=== PATIENT | female | born 1970 | race Caucasian/White ===

== ENCOUNTER → 2016-11-17 | Outpatient (CLI) | payer BC | LOC: RAD 09:13 | PROVIDERS: ATTEND Internal Medicine Gastroenterology | DX: R19.4 Change in bowel habit (principal); R10.9 Unspecified abdominal pain; R14.0 Abdominal distension (gaseous) | CPT/HCPCS: 74250 ==

== ENCOUNTER → 2017-02-23 | Outpatient (CLI) | payer BC ==
--- NOTE | 2017-02-23 14:20 | WOMENS IMAGING REPORT ---
EXAM DESCRIPTION: 3D SCREENING MAMMO BILAT COMPLETED DATE/TIME: 02/23/2017 1:58 pm REASON FOR STUDY: Z12.31, ROUTINE SCREENING MAMMO (3D) Z12.31 ENCNTR SCREEN MAMMOGRAM FOR MALIGNANT NEOPLASM OF SCARLET COMPARISON: 02/18/2016 and 01/14/2015. TECHNIQUE: Standard craniocaudal and mediolateral oblique views of each breast recorded using digita l acquisition and breast tomosynthesis. LIMITATIONS: None. FINDINGS: No masses, calcifications or architectural distortion. No areas of suspicion. Read with the assistance of CAD. .[facility] - R2 Cenova Version 1.3 .[facility] - R2 Cenova Version 1.3 .[facility] - R2 Cenova Version 2.4 .[facility] [place] R2 Cenova Version 2.4 .[facility] - R2 Cager Operator Version 9.2 IMPRESSION: NORMAL MAMMOGRAM. BIRADS 1. BREAST DENSITY: b. There are scattered areas of fibroglandular density. BIRAD: 1 NEGATIVE RECOMMENDATION: ROUTINE SCREENING COMMENT: The patient has been notified of the results by letter per MQSA requirements. Additional no tification policies are in place for contacting patient with suspicious or incomplete findings. Quality ID #[id number]: The [employer] recommends an annual screening mammogram for women aged 40 years or over. This facility utilizes a reminder system to ensure that all patients receive reminder letters, and/or direct phone calls for appointments. This includes reminders for routine scr eening mammograms, diagnostic mammograms, or other Breast Imaging Interventions when appropriate. Th is patient will be placed in the appropriate reminder system. The [employer] (ACR) has developed recommendations for screening MRI of the breast s in certain patient populations, to be used in conjunction with mammography. Breast MRI surveillanc e may be appropriate for women with more than 20% lifetime risk of developing breast cancer as deter mined by genetic testing, significant family history of the disease, or history of mantle radiation f or Hodgkins Disease. ACR Practice Guidelines 2008. DBT Technology DBT is a type of tomographic mammography. With conventional mammography, overlapping breast tissue ma y make lesions difficult to detect, even with good compression. DBT uses an x-ray tube that rotates a round the breast, taking images at different angles. These images are then combined to create thin sl ices of the breast that the radiologist can view as a 3D reconstruction. The [employer] unit can perform full-field digital mammograms (2D imaging); or DBT (3D imaging); or both, in a combination mode that quickly performs both the mammogram and the tomosynthesis scan while the breast is still compressed. PQRS 6045F: Fluoroscopic imaging is not utilized for breast tomosynthesis. TECHNICAL DOCUMENTATION: FINDING NUMBER: (1) ASSESSMENT: (1) JOB ID: [id number] [employer]- All Rights Reserved
== END ==
LOC: WI 13:12
PROVIDERS: ATTEND Internal Medicine
DX: Z12.31 Encounter for screening mammogram for malignant neoplasm of breast (principal)
CPT/HCPCS: 77063; G0202; 77067

== ENCOUNTER → 2017-06-01 | Outpatient (CLI) | payer BC ==
--- NOTE | 2017-06-01 14:06 | RADIOLOGY REPORT (SQ) ---
EXAM DESCRIPTION: CT CHEST WITH COMPLETED DATE/TIME: 06/01/2017 1:40 pm REASON FOR STUDY: CHEST PAIN R07.9 CHEST PAIN, UNSPECIFIED R10.2 PELVIC AND PERINEAL PAIN R10.9 U NSPECIFIED ABDOMINAL PAIN COMPARISON: None. TECHNIQUE: CT scan of the chest performed using helical scanning technique with dynamic intravenous contrast injection. Images reviewed with lung, soft tissue and bone windows. Reconstructed coronal and sagittal MPR images reviewed. All images stored on PACS. All CT scanners at this facility use dose modulation, iterative reconstruction, and/or weight based d osing when appropriate to reduce radiation dose to as low as reasonably achievable (ALARA). [facility]: Dose Right [facility]: CareDose [facility]: Dose Right [facility]: Teradose 4D [facility]: Plum Baby CONTRAST TYPE AND DOSE: 100 mL Isovue 370- low osmolar. RENAL FUNCTION: BUN 16 creatinine 1.01. RADIATION DOSE: . LIMITATIONS: None. FINDINGS: LUNGS AND PLEURA: No opacities, nodules, masses. No pneumothorax. No effusions. HILAR AND MEDIASTINAL STRUCTURES: No identified masses or abnormal nodes. HEART AND VASCULAR STRUCTURES: No aneurysm or dissection. No central pulmonary emboli. No pericardi al effusion. HARDWARE: None in the chest. UPPER ABDOMEN: No significant findings. Limited exam. THYROID AND OTHER SOFT TISSUES: No masses. No adenopathy. BONES: No significant finding. OTHER: No other significant finding. IMPRESSION: NORMAL CT OF THE CHEST WITH IV CONTRAST. TECHNICAL DOCUMENTATION: JOB ID: [id number] Quality ID # [id number]: Final reports with documentation of one or more dose reduction techniques (e.g., Au tomated exposure control, adjustment of the mA and/or kV according to patient size, use of iterative reconstruction technique) 2010 [employer]- All Rights Reserved
--- NOTE | 2017-06-01 14:09 | RADIOLOGY REPORT (SQ) ---
EXAM DESCRIPTION: CT ABD/PELVIS WITH IV ORAL COMPLETED DATE/TIME: 06/01/2017 1:40 pm REASON FOR STUDY: PELVIC AND PERINEAL PAIN/ABDOMINAL PAIN R07.9 CHEST PAIN, UNSPECIFIED R10.2 PELV IC AND PERINEAL PAIN R10.9 UNSPECIFIED ABDOMINAL PAIN COMPARISON: 11/19/2015. TECHNIQUE: CT scan of the abdomen and pelvis performed with intravenous and oral contrast using mony collin scanning technique with dynamic intravenous contrast injection. Images reviewed with lung, soft t issue, and bone windows. Reconstructed coronal and sagittal MPR images reviewed. Delayed images for e valuation of the urinary system also acquired. All images stored on PACS. All CT scanners at this facility use dose modulation, iterative reconstruction, and/or weight based d osing when appropriate to reduce radiation dose to as low as reasonably achievable (ALARA). [facility]: Dose Right [facility]: CareDose [facility]: Dose Right [facility]: Teradose 4D [facility]: MobileReactor CONTRAST TYPE AND DOSE: contrast/concentration: Isovue 370.00 mg/ml; Total Contrast Delivered: 100.0 ml; Total Saline Delivered: 64.0 ml RENAL FUNCTION: BUN 16 creatinine 1.01. RADIATION DOSE: Up-to-date CT equipment and radiation dose reduction techniques were employed. CTDIv ol: 21.7 - 29.4 mGy. DLP: 4090 mGy-cm.. LIMITATIONS: None. FINDINGS: LOWER CHEST: No significant findings. No nodules or infiltrates. LIVER: Normal size. No masses. No dilated ducts. SPLEEN: Normal size. No focal lesions. PANCREAS: No masses. No significant calcifications. No adjacent inflammation or peripancreatic fluid collections. Pancreatic duct not dilated. GALLBLADDER: Surgically absent. ADRENAL GLANDS: No significant masses or asymmetry. RIGHT KIDNEY AND URETER: No solid masses. No significant calcification. No hydronephrosis or hydroure ter. LEFT KIDNEY AND URETER: No solid masses. No significant calcification. No hydronephrosis or hydrouret er. AORTA AND VESSELS: No aneurysm. No dissection. Renal arteries, SMA, celiac without stenosis. RETROPERITONEUM: No retroperitoneal adenopathy, hemorrhage or masses. BOWEL AND PERITONEAL CAVITY: No obstruction. No visualized masses. No free fluid. No inflammatory ch anges or thickening of bowel wall. APPENDIX: Surgically absent. PELVIS: No significant masses. Normal bladder. No free fluid. ABDOMINAL WALL: No masses. No hernias. BONES: No significant or acute findings. OTHER: No other significant finding. IMPRESSION: NO SIGNIFICANT OR ACUTE FINDINGS IN THE ABDOMEN OR PELVIS. TECHNICAL DOCUMENTATION: JOB ID: [id number] Quality ID # [id number]: Final reports with documentation of one or more dose reduction techniques (e.g., Au tomated exposure control, adjustment of the mA and/or kV according to patient size, use of iterative reconstruction technique) 2010 [employer]- All Rights Reserved
== END ==
LOC: RAD 12:55
PROVIDERS: ATTEND Internal Medicine
DX: R07.9 Chest pain, unspecified (principal); R10.2 Pelvic and perineal pain; R10.9 Unspecified abdominal pain
CPT/HCPCS: 71260; 74177

== ENCOUNTER → 2017-09-08 | Outpatient (CLI) | payer BC ==
[~2017-09-08] MED LIST: AMINOPHYLLINE INJ/PF 250 MG/10 ML SDV IV ONE; REGADENOSON INJ 0.4 MG/5 ML DISP.SYRIN IV ONE
--- NOTE | 2017-09-08 12:24 | DRAGON STRESS TEST REPORT ---
INTRAVENOUS LEXISCAN CARDIOLITE STRESS TEST USING SINGLE PHOTON EMMISION COMPUTERIZED TOMOGRAPHIC. DATE OF PROCEDURE: September 08, 2017 INDICATION : Chest pain CARDIAC RISK FACTORS: Hypertension RESTING EKG: Sinus rhythm without any significant baseline ST-T wave changes STRESS EKG: No significant changes noted with LexiScan bolus REASON FOR TERMINATION: Protocol. PROCEDURE REPORT: Baseline heart rate 67 beats per minute with blood pressure of 90/60. Patient had no significant complaints. Heart rate at 2 minutes post bolus 86 with a blood pressure of 82/48. 3 minutes post bolus heart rate 81 with blood pressure of 98/60. No significant EKG changes were noted. Patient had no significant complaints during the procedure or postprocedure. Patient injected with Aminophyllin 75 mg at 3 minutes or later after Lexiscan bolus. CONCLUSIONS: Normal EKG and hemodynamic response to IV LexiScan. NUCLEAR DATA: At rest the patient was given 16.26 millicuries of technetium 99 sestamibi injected intravenously. As per protocol rest gated SPECT images were obtained. Subsequently the patient was given intravenous LexiScan at a dose of 0.4 mg in 5 mL intravenously, followed by flush with normal saline. Subsequently the stress dose of 45.3 millicuries of technetium 99 sestamibi was injected intravenously. As per protocol stress gated images were obtained. NUCLEAR INTERPRETATION: Both raw and processed data were used for interpretation. Visual, qualitative, computer-generated quantitative data was used. There was good myocardial uptake of technetium compound. Motion artifact and soft tissue attenuations were noted. Breast attenuation was significantly marked. Increased visceral uptake was noted. This caused significant difficulty with interpretation. Mild decreased uptake noted in the mid and basal anterior wall, in addition mild decreased uptake also noted in the mid and basal inferior wall. These are somewhat slightly more marked in the stress imaging as compared to the rest imaging. However there were no corresponding wall motion abnormalities noted. Cannot rule out mild ischemia involving the mid anterior wall and mid inferior wall. May consider alternative evaluation with either cardiac CTA or dobutamine stress echo etc. EKG gated imaging showed LV EF at 49 %, rest and stress gated EF similar visually. T. I D. ratio was 1.36. Lung heart ratio noted to be within normal limits 0.24. No significant extracardiac and abnormal radiotracer activities were noted. RV free wall uptake was noted to be mildly increased. IMPRESSION: Also refer to comments under nuclear interpretation. Also test results needs to be interpreted in the context of pretest probability. 1. Mild decreased uptake noted in the mid and basal anterior wall, in addition mild decreased uptake also noted in the mid and basal inferior wall. These are somewhat slightly more marked in the stress imaging as compared to the rest imaging. However there were no corresponding wall motion abnormalities noted. Cannot rule out mild ischemia/mild scar involving the mid anterior wall and mid inferior wall. May consider alternative evaluation with either cardiac CTA or dobutamine stress echo etc. cardiac MRI stress or PET stress. 2. Mild transient ischemic dilatation noted. Overall confidence in the test is low. RV free wall uptake noted to be mildly increased. 3. EKG gated imaging shows left ventricular ejection fraction of approximately 49 %. Visually no definite regional wall motion abnormalities were noted. 4. Clinical correlation requested as occasionally single vessel disease or balanced ischemia could be missed. In approximately 10% of the cases Lexiscan may not cause adequate vasodilatory stress. RECOMMENDATIONS: Aggressive risk factor modification, medical therapy. Clinical correlation with echocardiogram derived ejection fraction. Berkley Torres M.D., SANDHYA News Copy Editor art coordinator, Board certified in cardiovascular diseases, Nuclear cardiology, Echocardiography Cardiac CT and cardiac MRI Ph. [phone] [facility]
== END ==
LOC: RAD 08:53
PROVIDERS: ATTEND Internal Medicine Cardiovascular Disease
DX: R07.9 Chest pain, unspecified (principal)
CPT/HCPCS: 93017; 78452; A9500; J2785; J0280; Q9969

== ENCOUNTER 2017-10-14 08:16 | Observation (INO) | payer BC ==
[2017-10-06 13:06] LABS: HEMATOCRIT 36.9 % (36.0-47.0); HEMOGLOBIN 12.4 g/dL (12.0-15.5); MEAN CORPUSCULAR HEMOGLOBIN 33.2 pg (27.0-33.4); MEAN CORPUSCULAR HGB CONC 33.6 g/dL (32.0-36.0); MEAN CORPUSCULAR VOLUME 99 fl (80-97); PLATELET COUNT 362 10^3/uL (150-450); RED BLOOD COUNT 3.74 10^6/uL (3.72-5.28); RED CELL DISTRIBUTION WIDTH 14.4 % (11.5-14.0); WHITE BLOOD COUNT 8.8 10^3/uL (4.0-10.5)
[2017-10-06 13:11] LABS: APPEARANCE,URINE SLIGHTLY-CLOUDY; BILIRUBIN,URINE NEGATIVE (NEGATIVE); COLOR,URINE AMBER; GLUCOSE, URINE NEGATIVE (NEGATIVE); KETONES,URINE NEGATIVE (NEGATIVE); LEUKOCYTE ESTERASE,URINE NEGATIVE (NEGATIVE); NITRITE,URINE NEGATIVE (NEGATIVE); PROTEIN,URINE NEGATIVE (NEGATIVE); URINE SPECIFIC GRAVITY 1.024; UROBILINOGEN,URINE NEGATIVE mg/dL (<2.0)
[2017-10-06 13:27] LABS: ALANINE AMINOTRANSFERASE 44 U/L (9-52); ALBUMIN 4.6 g/dL (3.5-5.0); ALKALINE PHOSPHATASE 100 U/L (38-126); ANION GAP 11 (5-19); ASPARTATE AMINO TRANSFERASE 41 U/L (14-36); BILIRUBIN,DIRECT 0.3 mg/dL (0.0-0.4); BILIRUBIN,TOTAL 0.4 mg/dL (0.2-1.3); BLOOD UREA NITROGEN 18 mg/dL (7-20); CALCIUM 10.3 mg/dL (8.4-10.2); CARBON DIOXIDE 28 mmol/L (22-30); CHLORIDE 103 mmol/L (98-107); GLUCOSE 82 mg/dL (75-110); POTASSIUM 3.9 mmol/L (3.6-5.0); SODIUM 142.2 mmol/L (137-145); TOTAL PROTEIN 7.2 g/dL (6.3-8.2)
--- NOTE | 2017-10-06 15:49 | RADIOLOGY REPORT (SQ) ---
EXAM DESCRIPTION: CHEST PA/LATERAL COMPLETED DATE/TIME: 10/06/2017 12:56 pm REASON FOR STUDY: PRE OP COMPARISON: CT of chest with contrast 06/01/2017. EXAM PARAMETERS: NUMBER OF VIEWS: two views TECHNIQUE: Digital Frontal and Lateral radiographic views of the chest acquired. RADIATION DOSE: NA LIMITATIONS: none FINDINGS: LUNGS AND PLEURA: No infiltrate, masses or pneumothorax. No pleural effusion. MEDIASTINUM AND HILAR STRUCTURES: No masses or contour abnormalities. HEART AND VASCULAR STRUCTURES: Heart normal size. No evidence for failure. BONES: No acute findings. HARDWARE: None in the chest. OTHER: No other significant finding. IMPRESSION: NO SIGNIFICANT RADIOGRAPHIC FINDING IN THE CHEST. TECHNICAL DOCUMENTATION: JOB ID: [id number] SC-69 2010 [employer]- All Rights Reserved
--- NOTE | 2017-10-07 11:59 | EKG REPORT ---
SEVERITY:- ABNORMAL ECG - SINUS RHYTHM NONSPECIFIC INTRAVENTRICULAR CONDUCTION DELAY : Confirmed by: Berkley Torres 07-Oct-2017 11:57:49
[~2017-10-14 08:16] MED LIST changes: -AMINOPHYLLINE INJ/PF 250 MG/10 ML SDV IV ONE; +LACTATED RINGERS 1000 ML IV PRN; +LIDOCAINE 0.5% INJ-PF (5 MG/ML) 50 ML SDV SUBCUT PRN; -REGADENOSON INJ 0.4 MG/5 ML DISP.SYRIN IV ONE
[2017-10-14] MEDS ORDERED: LIDOCAINE 1%/EPINEPHRINE INJ 20 ML VIAL ONE (08:50)
[2017-10-14] MEDS ORDERED: FENTANYL CITRATE INJ/PF 100 MCG/2 ML AMPUL ONE ×3 (09:31→13:00)
[2017-10-14] MEDS ORDERED: MIDAZOLAM 2 MG/2 ML INJ ONE (09:32)
[2017-10-14] MEDS ORDERED: PROPOFOL INJ 200 MG/20 ML VIAL IV ONE (09:32)
[2017-10-14] MEDS ORDERED: ONDANSETRON HCL INJ/PF 4 MG/2 ML SDV ONE (09:32)
[2017-10-14] MEDS ORDERED: DEXAMETHASONE SOD PHOSPHATE INJ 4 MG/1 ML VIAL ONE (09:32)
[2017-10-14] MEDS ORDERED: ACETAMINOPHEN 100 ML IV ONE ×3 (09:33→18:26)
[2017-10-14] MEDS ORDERED: HYDROMORPHONE HCL INJ/PF 2 MG/ML AMPULE ONE ×2 (09:33→14:42)
[2017-10-14] MEDS ORDERED: SUCCINYLCHOLINE CHLORIDE INJ 200 MG/10 ML VIAL ONE (09:42)
[2017-10-14] MEDS ORDERED: ROCURONIUM BROMIDE INJ 50 MG/5 ML VIAL IV ONE (09:42)
[2017-10-14] MEDS: CEFAZOLIN 1 GM/D5W RTU 1 GM/50 ML RTUPB IV PRN ×2 (09:46→15:40)
[2017-10-14] MEDS ORDERED: FENTANYL CITRATE INJ/PF 100 MCG/2 ML AMPUL IV PRN ×3 (10:46)
[2017-10-14] MEDS ORDERED: PROMETHAZINE HCL INJ 25 MG/1 ML VIAL IV PRN ×2 (10:46)
[2017-10-14] MEDS ORDERED: DIPHENHYDRAMINE HCL 50 MG/ML VIAL IV PRN (10:46)
[2017-10-14] MEDS: IBUPROFEN 800 MG TABLET PO PRN (15:45)
[2017-10-14] MEDS: HYDROMORPHONE HCL INJ/PF 2 MG/ML AMPULE IV PRN (21:20)
[2017-10-15] MEDS: HYDROMORPHONE HCL INJ/PF 2 MG/ML AMPULE IV PRN ×6 (01:49→23:03)
[2017-10-15 06:07] LABS: HEMATOCRIT 32.4 % (36.0-47.0); HEMOGLOBIN 10.9 g/dL (12.0-15.5); MEAN CORPUSCULAR HEMOGLOBIN 33.6 pg (27.0-33.4); MEAN CORPUSCULAR HGB CONC 33.7 g/dL (32.0-36.0); MEAN CORPUSCULAR VOLUME 100 fl (80-97); PLATELET COUNT 344 10^3/uL (150-450); RED BLOOD COUNT 3.25 10^6/uL (3.72-5.28); RED CELL DISTRIBUTION WIDTH 14.3 % (11.5-14.0); WHITE BLOOD COUNT 15.3 10^3/uL (4.0-10.5)
--- NOTE | 2017-10-15 09:46 | PDOC PROGRESS REPORT ---
Subjective Progress Note for:: 10/15/17 Subjective:: doing well. tolerating pain with current meds. tolerating diet. ready to ambulate to restroom when aviles discontinued. Reason For Visit: N93.8, Z14.8 Physical Exam - Physical Exam Vital Signs: Temp Pulse Resp BP Pulse Ox 97.9 F 72 15 110/47 L 95 10/15/17 07:48 10/15/17 07:48 10/15/17 07:48 10/15/17 07:48 10/15/17 07:48 Intake & Output 10/14/17 10/15/17 10/16/17 06:59 06:59 06:59 Intake Total 2350 Output Total 1800 Balance 550 Weight 137.89 kg 137.89 kg General appearance: PRESENT: no acute distress, cooperative GI/Abdominal exam: PRESENT: normal bowel sounds, soft, tenderness - appropriate for post operative state. minimal drainage on dressing Musculoskeletal exam: PRESENT: ambulatory, full ROM Neurological exam: PRESENT: alert Result Laboratory Results: 10/15/17 05:06 10/14/17 08:53 10/15/17 05:06 WBC 15.3 H RBC 3.25 L Hgb 10.9 L Hct 32.4 L MCV 100 H MCH 33.6 H MCHC 33.7 RDW 14.3 H Plt Count 344 Impressions: Chest X-Ray 10/06/17 12:21 IMPRESSION: NO SIGNIFICANT RADIOGRAPHIC FINDING IN THE CHEST. Assessment & Plan - Diagnosis (1) Anemia Qualifiers: Iron deficiency anemia type: chronic blood loss Is this a current diagnosis for this admission?: Yes (2) Abnormal uterine and vaginal bleeding, unspecified Is this a current diagnosis for this admission?: Yes (3) Chronic pelvic pain in female Is this a current diagnosis for this admission?: Yes (4) Hereditary nonpolyposis colorectal cancer (HNPCC) gene mutation positive Is this a current diagnosis for this admission?: Yes - Time Time Spent with patient: 15-24 minutes Medications reviewed and adjusted accordingly: Yes Anticipated discharge: Home Within: within 24 hours - Inpatient Certification Based on my medical assessment, after consideration of the patient's comorbidities, presenting symptoms, or acuity I expect that the services needed warrant INPATIENT care.: Yes I certify that my determination is in accordance with my understanding of Medicare's requirements for reasonable and necessary INPATIENT services [42 CFR 412.3e].: Yes Medical Necessity: Need for Pain Control
[2017-10-15] MEDS: IBUPROFEN 800 MG TABLET PO PRN (11:56)
[2017-10-16] MEDS: HYDROMORPHONE HCL INJ/PF 2 MG/ML AMPULE IV PRN ×3 (03:19→17:46)
--- NOTE | 2017-10-16 07:10 | PDOC PROGRESS REPORT ---
Subjective Progress Note for:: 10/16/17 Subjective:: doing well, still requiring IV pain medication for pain control. c/o skin around incision becoming red. Reason For Visit: N93.8, Z14.8 Physical Exam - Physical Exam Vital Signs: Temp Pulse Resp BP Pulse Ox 98.0 F 81 14 122/63 98 10/16/17 03:55 10/16/17 03:55 10/16/17 03:55 10/16/17 03:55 10/16/17 05:09 Intake & Output 10/15/17 10/16/17 10/17/17 06:59 06:59 06:59 Intake Total 2350 1850 Output Total 1800 1050 Balance 550 800 Weight 137.89 kg 137.89 kg General appearance: PRESENT: no acute distress, cooperative GI/Abdominal exam: PRESENT: soft, tenderness - appropriate for post op period. skin around incision thin and mildly red. Result Laboratory Results: 10/15/17 05:06 10/14/17 08:53 Impressions: Chest X-Ray 10/06/17 12:21 IMPRESSION: NO SIGNIFICANT RADIOGRAPHIC FINDING IN THE CHEST. Assessment & Plan - Diagnosis (1) Anemia Qualifiers: Iron deficiency anemia type: chronic blood loss Is this a current diagnosis for this admission?: Yes (2) Abnormal uterine and vaginal bleeding, unspecified Is this a current diagnosis for this admission?: Yes (3) Chronic pelvic pain in female Is this a current diagnosis for this admission?: Yes (4) Hereditary nonpolyposis colorectal cancer (HNPCC) gene mutation positive Is this a current diagnosis for this admission?: Yes - Inpatient Certification Based on my medical assessment, after consideration of the patient's comorbidities, presenting symptoms, or acuity I expect that the services needed warrant INPATIENT care.: Yes I certify that my determination is in accordance with my understanding of Medicare's requirements for reasonable and necessary INPATIENT services [42 CFR 412.3e].: Yes Medical Necessity: Need for Pain Control - Plan Summary Plan Summary: will give IV antibiotics x 24 hours for preventative in light of erythema at incision. start steroid ointment for itching. attempt to try to convert to PO pain meds for pain control today.
[2017-10-16] MEDS: IBUPROFEN 800 MG TABLET PO PRN (07:52)
[2017-10-16] MEDS: HYDROCODONE/ACETAMINOPHEN 5-325 MG TABLET PO PRN ×2 (07:53→22:22)
[2017-10-16] MEDS: FAMOTIDINE 20 MG TABLET PO SCH ×2 (10:14→22:22)
[2017-10-16] MEDS: CLINDAMYCIN 900 MG/D5W RTU 50 ML IV SCH ×2 (10:14→17:41)
[2017-10-16] MEDS: TRIAMCINOLONE ACETONIDE 0.5% CREAM 15 GM TP SCH ×4 (10:15→22:23)
[2017-10-16] MEDS: PANTOPRAZOLE SODIUM 40 MG VIAL IV SCH (10:15)
[2017-10-17] MEDS: CLINDAMYCIN 900 MG/D5W RTU 50 ML IV SCH ×2 (01:05→09:47)
[2017-10-17] MEDS: IBUPROFEN 800 MG TABLET PO PRN (01:05)
[2017-10-17] MEDS: TRIAMCINOLONE ACETONIDE 0.5% CREAM 15 GM TP SCH (06:51)
[2017-10-17] MEDS: HYDROCODONE/ACETAMINOPHEN 5-325 MG TABLET PO PRN (08:14)
[2017-10-17] MEDS: FAMOTIDINE 20 MG TABLET PO SCH (09:47)
[2017-10-17] MEDS: PANTOPRAZOLE SODIUM 40 MG VIAL IV SCH (09:47)
--- NOTE | 2017-10-17 11:04 | PDOC DISCHARGE SUMMARY ---
General - Admit/Disc Date/PCP Admission Date/Primary Care Provider: 10/16/17 09:00 HARRIS MILLER MD Discharge Date: 10/17/17 - Discharge Diagnosis (1) Anemia Is this a current diagnosis for this admission?: Yes (2) Abnormal uterine and vaginal bleeding, unspecified Is this a current diagnosis for this admission?: Yes (3) Chronic pelvic pain in female Is this a current diagnosis for this admission?: Yes (4) Hereditary nonpolyposis colorectal cancer (HNPCC) gene mutation positive Is this a current diagnosis for this admission?: Yes - Additional Information Home Medications: Hydrochlorothiazide [Hydrodiuril 12.5 mg Capsule] 12.5 mg PO QAM 03/01/12 Levothyroxine Sodium [Synthroid 112 Mcg Tablet] 125 mcg PO DAILY 03/01/12 Lisinopril [Prinivil 40 mg Tablet] 40 mg PO DAILY 03/01/12 Multivitamin [Multivitamins] 1 each PO DAILY 03/01/12 Omeprazole [Prilosec 20 mg Capsule] 20 mg PO BID 03/01/12 Vitamin B Complex [B Complex] 1 each PO DAILY 03/01/12 Acetaminophen [Tylenol Extra Strength] 500 mg PO PRN PRN 10/06/17 Betamethasone Dipropionate [Betamethasone Dipropionate Ointment] 1 applic TP BID 10/06/17 Calcium Carb, Citrate/Vit D3 [Calcium + D3 ER Tablet] 1 each PO DAILY 10/06/17 Cetirizine HCl [Zyrtec] 10 mg PO PRN PRN 10/06/17 Cranberry Fruit Extract [Cranberry 500 mg Capsule] 500 mg PO DAILY 10/06/17 Diclofenac Sodium 2.5 ml OP DAILY 10/06/17 Diphenhydramine HCl [Allergy] 25 mg PO PRN PRN 10/06/17 Docusate Sodium [Stool Softener] 200 mg PO DAILY 10/06/17 Duloxetine HCl 60 mg PO DAILY 10/06/17 Fiber [Fiber Choice] 3 each PO DAILY 10/06/17 Folic Acid 1 mg PO DAILY 10/06/17 Gabapentin Enacarbil [Horizant] 300 mg PO QPM 10/06/17 Glycopyrrolate 2 mg PO BID 10/06/17 Hydrocodone/Acetaminophen [Hydrocodon-Acetaminophen 5-325] 1 each PO TID PRN Lidocaine 5 gm TP QID PRN 10/06/17 Methotrexate Sodium [Methotrexate] 8 tab PO ASDIR PRN 10/06/17 Mineral Oil 15 ml PO DAILY 10/06/17 Pseudoephedrine HCl [Suphedrin] 10 mg PO PRN PRN 10/06/17 Sumatriptan Succinate 100 mg PO PRN PRN 10/06/17 Tizanidine HCl 4 mg PO TID PRN 10/06/17 Tofacitinib Citrate [Xeljanz Xr] 11 mg PO DAILY 10/06/17 Topiramate 50 mg PO TID 10/06/17 Turmeric/Turmeric Ext/Pepr Ext [Turmeric Complex 500 mg Cap] 1 each PO DAILY Valacyclovir HCl [Valacyclovir] 500 mg PO DAILY 10/06/17 History of Present Illness History of Present Illness: EDNA PRATHER is a 47 year old female Hospital Course Hospital Course: POD #3 from [facility]. Has responded well to current care. tolerating regular diet, ambulating and passing flatus. Pain now tolerated with PO pain meds. Physical Exam - Physical Exam Vital Signs: Temp Pulse Resp BP Pulse Ox 97.9 F 65 15 136/74 H 100 10/17/17 07:28 10/17/17 07:28 10/17/17 07:28 10/17/17 07:28 10/17/17 07:28 Intake & Output 10/16/17 10/17/17 10/18/17 06:59 06:59 06:59 Intake Total 1850 1452 Output Total 1050 Balance 800 1452 Weight 137.89 kg General appearance: PRESENT: no acute distress, cooperative GI/Abdominal exam: PRESENT: soft, tenderness - incision c/d/intact erythema improved Result Laboratory Results: 10/15/17 05:06 10/14/17 08:53 Impressions: Chest X-Ray 10/06/17 12:21 IMPRESSION: NO SIGNIFICANT RADIOGRAPHIC FINDING IN THE CHEST. Plan Discharge Plan: discharge home with [place] for pain control and follow up with me in 1 week as scheduled. Time Spent: Less than 30 Minutes
[2017-10-17 12:25] VITALS: BP 113/54
--- NOTE | 2017-10-18 14:58 | OPERATIVE REPORT E ---
Operative Report NAME: EDNA PRATHER : 1970 AGE: 47Y DATE OF PROCEDURE: 10/14/2017 ROOM: 213 PREOPERATIVE DIAGNOSIS: Abnormal uterine bleeding, anemia, positive HNPCC gene. POSTOPERATIVE DIAGNOSIS: Abnormal uterine bleeding, anemia, positive HNPCC gene. SURGEON: MABEL ESTRADA M.D. SUPERVISOR VOLUNTEER SERVICES: Genoveva , export sales assistant nursing surgical services director. ANESTHESIA: Dr. NGUYỄN with general. FINDINGS: A 10-week uterus with multiple adhesions of the bowels of the pelvic side lockett. Multiple adhesions of the peritoneum to the previously placed mesh. Normal Fallopian tubes and ovaries. Left ovary did have a small corpus luteal cyst. COMPLICATIONS: None. ESTIMATED BLOOD LOSS: 500 mL. SPECIMENS REMOVED: Uterus, cervix, and bilateral Fallopian tubes and ovaries. PROCEDURE: Total abdominal hysterectomy with bilateral salpingo-oophorectomy. PROCEDURE IN DETAIL: Patient was taken to the operating room, prepared and draped in the normal sterile fashion in dorsal lithotomy position and Elmer stirrups. Under sterile conditions a catheter was placed to gravity and a sterile speculum was placed into the vagina, and the cervix was grasped with a single-toothed tenaculum for uterine manipulation. Gloves were changed and continued with the upper portion of the case, where a 5 mm trocar was placed under direct visualization in the left upper quadrant and the abdomen was insufflated with approximately 2 L of CO2 gas. We then inspected the abdomen and with the above findings, found safe placement of further trocars was found to be ill advised and therefore the decision was made to perform an open laparotomy. The trocar was removed and the abdomen was deflated. The patient was repositioned and a Pfannenstiel skin incision was made with a 10 blade and carried through to the underlying layer of fascia with the same 10 blade. The fascia was excised and extended laterally with Mayos. The rectus muscle was divided. The peritoneal cavity was entered sharply with Metzenbaum's. The patient was placed in a slight Trendelenburg and bowel was swept away. A Mobius retractor was placed for bowel retraction; however, there was a large amount of bowel that was still present and this was packed away with moist laparotomy sponges. We noted once more that there was significant amount of bowel that as adhered to the pelvic side wall making visualization and mobilization of the IP ligaments difficulty. The round ligaments were tied off with 2-0 chromic, and the round ligaments were then undermined, and the uterine arteries were skeletonized as the broad ligament was carefully entered. Continued skeletonization of the broad ligament out to the IP ligament on the left did offer isolation of the IP ligament. The IP ligament was then transected using a ligature carefully with good hemostasis. Continued transection of the IP ligament then freed the ovary from the peritoneum. Then began skeletonization of the uterine arteries on the left using the ligature and transecting these safely to the level of the internal cervical os. The bladder flap was then using Metzenbaum's and pickups and blunt dissection. Then turned my attention to the left adnexa, where once again the round ligament on this side was tied off with 2-0 chromic and tagged. The round ligament was then undermined and the broad ligament was entered sharply using the Bovie. We began skeletonization of the uterine arteries on this side and went cephalad until we were able to isolate the IP ligament. The IP ligament was quite close to some of the adhered bowel on the pelvic side wall so on this adnexa chose to use Jens clamps to clamp the IP ligament in order to avoid thermal spread. The IP ligament was clamped and suture ligated x2 using 0 Vicryl. The IP ligament was then divided and the right adnexa was undermined, freeing this up from the peritoneum. The uterine arteries were continually skeletonized and transected using a ligature with care and allowing the perimetrium fall away. The bladder flap was finalized using Metzenbaum's and pickups. We continued skeletonization and ligation of the uterine arteries bilaterally as visualization allowed until the cervix could be undermined. The vaginal cuff angles were tied off and transected using 0 Vicryl. The specimen was then amputated just below the cervix using the Alicia's. The vaginal cuff on the anterior and posterior aspects was grasped with an Allis clamp, and interrupted [id number] sutures were used to close the vaginal cuff with good hemostasis. There was a small amount of oozing of the vaginal cuff, and this was easily rectified using the Bovie. The abdominal cavity was then copiously irrigated with sterile water and there was no further bleeding found. The sutures were then cut and all instruments were removed including the Mobius retractor and the laparotomy sponges. The rectus muscle was then brought together, reapproximated with 2 interrupted sutures of 2-0 chromic. The fascia was closed with 0 Vicryl. The subcutaneous layer was closed with plain catgut, and the skin was closed with kenrick. Patient tolerated the procedure well. Sponge, lap, and needle counts were correct x2, and the patient was taken to Recovery in stable condition. DICTATING PHYSICIAN: MABEL ESTRADA M.D. [id number] PHY#: [id number] ID: [id number] JOB#: [id number] ACCT: [id number] cc:MABEL ESTRADA M.D. >
== END 2017-10-17 14:13 | disposition home or self-care (01) ==
LOC: OROUT 08:16 → 2N 13:44 → OROUT 10-15 09:00 → 2N 10-16 09:00
PROVIDERS: ADMIT Obstetrics & Gynecology; ATTEND Obstetrics & Gynecology
PROC: 0UT20ZZ Resection of Bilateral Ovaries, Open Approach (ICD-10-PCS; 2017-10-14)
PROC: 0UT70ZZ Resection of Bilateral Fallopian Tubes, Open Approach (ICD-10-PCS; 2017-10-14)
PROC: 0UT90ZZ Resection of Uterus, Open Approach (ICD-10-PCS; principal; 2017-10-14 10:30)
DX: N93.8 Other specified abnormal uterine and vaginal bleeding (principal); Z14.8 Genetic carrier of other disease; D50.0 Iron deficiency anemia secondary to blood loss (chronic); N93.9 Abnormal uterine and vaginal bleeding, unspecified; G89.29 Other chronic pain; R10.2 Pelvic and perineal pain; Z15.09 Genetic susceptibility to other malignant neoplasm; N83.12 Corpus luteum cyst of left ovary; N72 Inflammatory disease of cervix uteri; N80.0 Endometriosis of uterus; N73.6 Female pelvic peritoneal adhesions (postinfective); L76.82 Other postprocedural complications of skin and subcutaneous tissue; L53.8 Other specified erythematous conditions; Y83.8 Other surgical procedures as the cause of abnormal reaction of the patient, or of later complication, without mention of misadventure at the time of the procedure; Z79.899 Other long term (current) drug therapy; Z90.49 Acquired absence of other specified parts of digestive tract; Z98.890 Other specified postprocedural states; Z87.891 Personal history of nicotine dependence
CPT/HCPCS: 93005; 86900; 86901; 36415 ×3; 86850; 84132; 85027 ×2; 81025; 80053; 81001; 88307 ×2; 71046; 93010; 58150; G0378 ×3; G0379; J2250; J0690; J3490 ×3; J1100; J3010; J1170 ×3; S0164 ×2; J0330; J2405; J2704; J0131; 840

== ENCOUNTER → 2018-02-21 | Outpatient (CLI) | payer BC ==
--- NOTE | 2018-02-21 15:04 | RADIOLOGY REPORT (SQ) ---
EXAM DESCRIPTION: CT ABD/PELVIS WITH IV ONLY COMPLETED DATE/TIME: 02/21/2018 2:22 pm REASON FOR STUDY: LOWER ABDOMINAL PAIN, UNSPECIFIED R10.30 LOWER ABDOMINAL PAIN, UNSPECIFIED COMPARISON: CT abdomen pelvis 06/01/2017, 11/19/2015, 01/07/2012 TECHNIQUE: CT scan of the abdomen and pelvis performed using helical scanning technique with dynamic intravenous contrast injection. No oral contrast. Images reviewed with lung, soft tissue, and bone windows. Reconstructed coronal and sagittal MPR images reviewed. Delayed images for evaluation of the urinary system also acquired. All images stored on PACS. All CT scanners at this facility use dose modulation, iterative reconstruction, and/or weight based d osing when appropriate to reduce radiation dose to as low as reasonably achievable (ALARA). [facility]: Dose Right [facility]: CareDose [facility]: Dose Right [facility]: Teradose 4D [facility]: Shopear CONTRAST TYPE AND DOSE: contrast/concentration: Isovue 370.00 mg/ml; Total Contrast Delivered: 98.0 ml; Total Saline Delivered: 72.0 ml RENAL FUNCTION: Creatinine 0.9 RADIATION DOSE: CT Rad equipment meets quality standard of care and radiation dose reduction techniq ues were employed. CTDIvol: 25.1 - 29.1 mGy. DLP: 2866 mGy-cm.. LIMITATIONS: None. FINDINGS: There are two fat containing ventral hernias in the right upper quadrant anterior abdomina l wall, likely along cholecystectomy trocar tracts. A 2 cm gap in the anterior abdominal wall muscu lature is present on axial image 16 and sagittal image 47 containing omental fat. A 3 cm right upper quadrant abdominal wall defect containing omental fat is present on axial image 36 and sagittal imag e 49. There is an intact umbilical hernia repair on axial images 52-58. LOWER CHEST: No significant findings. No nodules or infiltrates. LIVER: Normal size. No masses. No dilated ducts. SPLEEN: Normal size. No focal lesions. PANCREAS: No masses. No significant calcifications. No adjacent inflammation or peripancreatic fluid collections. Pancreatic duct not dilated. GALLBLADDER: Surgically absent ADRENAL GLANDS: No significant masses or asymmetry. RIGHT KIDNEY AND URETER: No solid masses. No significant calcifications. No hydronephrosis or hyd roureter. LEFT KIDNEY AND URETER: No solid masses. No significant calcifications. No hydronephrosis or hydr oureter. AORTA AND VESSELS: No aneurysm. No dissection. Renal arteries, SMA, celiac without stenosis. RETROPERITONEUM: No retroperitoneal adenopathy, hemorrhage or masses. BOWEL AND PERITONEAL CAVITY: No masses or inflammatory changes. No free fluid or peritoneal masses. APPENDIX: Surgically absent PELVIS: No mass. No free fluid. Normal bladder. Post hysterectomy ABDOMINAL WALL: As above BONES: No significant or acute findings. OTHER: No other significant finding. IMPRESSION: Small right upper quadrant fat containing ventral hernias likely along cholecystectomy t rocar tracts. Intact umbilical/infraumbilical ventral hernia repair Post cholecystectomy appendectomy and hysterectomy TECHNICAL DOCUMENTATION: JOB ID: [id number] Quality ID # [id number]: Final reports with documentation of one or more dose reduction techniques (e.g., Au tomated exposure control, adjustment of the mA and/or kV according to patient size, use of iterative reconstruction technique) 2010 [employer]- All Rights Reserved Reading location - IP/workstation name: [email or web address]
== END ==
LOC: RAD 13:52
PROVIDERS: ATTEND Surgery
DX: R10.30 Lower abdominal pain, unspecified (principal)
CPT/HCPCS: 74177; 82565

== ENCOUNTER → 2018-02-24 | Outpatient (CLI) | payer BC ==
--- NOTE | 2018-02-24 20:07 | WOMENS IMAGING REPORT ---
EXAM DESCRIPTION: 3D SCREENING MAMMO BILAT COMPLETED DATE/TIME: 02/24/2018 2:06 pm REASON FOR STUDY: ROUTINE SCREENING;Z12.31 Z12.31 ENCNTR SCREEN MAMMOGRAM FOR MALIGNANT NEOPLASM OF SCARLET COMPARISON: Multiple since 2010 TECHNIQUE: Standard craniocaudal and mediolateral oblique views of each breast recorded using digita l acquisition and breast tomosynthesis. LIMITATIONS: None. FINDINGS: No masses, calcifications or architectural distortion. No areas of suspicion. Read with the assistance of CAD. .[facility] - R2 Cenova Version 1.3 .[facility] - R2 Cenova Version 1.3 .[facility] - R2 Cenova Version 2.4 .[facility] - R2 Cenova Version 2.4 .[facility] - R2 Pediatric Audiologist Version 9.2 IMPRESSION: NORMAL MAMMOGRAM. BIRADS 1. BREAST DENSITY: b. There are scattered areas of fibroglandular density. BIRAD: 1 NEGATIVE RECOMMENDATION: ROUTINE SCREENING Please continue yearly bilateral screening tomosynthesis in February 2019 COMMENT: The patient has been notified of the results by letter per SA requirements. Additional no tification policies are in place for contacting patient with suspicious or incomplete findings. Quality ID #[id number]: The [employer] recommends an annual screening mammogram for women aged 40 years or over. This facility utilizes a reminder system to ensure that all patients receive reminder letters, and/or direct phone calls for appointments. This includes reminders for routine scr eening mammograms, diagnostic mammograms, or other Breast Imaging Interventions when appropriate. Th is patient will be placed in the appropriate reminder system. The [employer] (ACR) has developed recommendations for screening MRI of the breast s in certain patient populations, to be used in conjunction with mammography. Breast MRI surveillanc e may be appropriate for women with more than 20% lifetime risk of developing breast cancer as deter mined by genetic testing, significant family history of the disease, or history of mantle radiation f or Hodgkins Disease. ACR Practice Guidelines 2008. DBT Technology DBT is a type of tomographic mammography. With conventional mammography, overlapping breast tissue ma y make lesions difficult to detect, even with good compression. DBT uses an x-ray tube that rotates a round the breast, taking images at different angles. These images are then combined to create thin sl ices of the breast that the radiologist can view as a 3D reconstruction. The 9SLIDES unit can perform full-field digital mammograms (2D imaging); or DBT (3D imaging); or both, in a combination mode that quickly performs both the mammogram and the tomosynthesis scan while the breast is still compressed. PQRS 6045F: Fluoroscopic imaging is not utilized for breast tomosynthesis. TECHNICAL DOCUMENTATION: FINDING NUMBER: (1) ASSESSMENT: (1) JOB ID: [id number] [employer]- All Rights Reserved Reading location - IP/workstation name: [email or web address]
== END ==
LOC: WI 13:30
PROVIDERS: ATTEND Obstetrics & Gynecology
DX: Z12.31 Encounter for screening mammogram for malignant neoplasm of breast (principal)
CPT/HCPCS: 77063; 77067

== ENCOUNTER 2019-01-24 15:50 | Emergency (ER) | payer SELFPAY ==
--- NOTE | 2019-01-24 16:41 | ER Document Report ---
ED Medical Screen (RME) - General Chief Complaint: Rash Stated Complaint: RASH Time Seen by Provider: 01/24/19 16:33 Primary Care Provider: ELADIO FAGAN MD [Primary Care Provider] - Follow up as needed Mode of Arrival: Ambulatory Information source: Patient Notes: 48-year-old female presented to ED for rash that started on the right leg on Wednesday. It has spread to all over her body. She has small dividual rash to abdomen chest back arms and legs but a very concentrated rash to the right lower extremity. She also complains of body aches and sore throat. She has a history of high blood pressure cholesterol angina high bone thyroid restless leg syndrome. She has had a hysterectomy a ventral and umbilical hernia repair as well as an appendectomy and a cholecystectomy. She does not smoke drink or do any drugs. She is alert oriented respirations regular and unlabored speaking in full sentences. I have greeted and performed a rapid initial assessment of this patient. A comprehensive ED assessment and evaluation of the patient, analysis of test results and completion of medical decision making process will be conducted by an additional ED providers. TRAVEL OUTSIDE OF THE [place] IN LAST 30 DAYS: No - Related Data Allergies/Adverse Reactions: celecoxib [From Celebrex] Allergy (Severe, Verified 10/06/17 10:48) Anaphylaxis cyclobenzaprine HCl [From Flexeril] Allergy (Intermediate, Verified 10/06/17 10:48) Hives morphine Allergy (Intermediate, Verified 10/06/17 10:48) Hives oxycodone [Oxycodone] Allergy (Mild, Verified 10/06/17 10:48) nausea and vomiting adalimumab [From Humira] Allergy (Verified 10/06/17 10:48) Blisters etanercept [From Enbrel] Allergy (Verified 10/06/17 10:51) Hives Past Medical History - Past Medical History Cardiac Medical History: Reports: Hx Hypertension - ON MEDS, Hx Heart Murmur - slight Denies: Hx Coronary Artery Disease, Hx Heart Attack Pulmonary Medical History: Denies: Hx Asthma, Hx Bronchitis, Hx COPD, Hx Pneumonia, Hx Tuberculosis Neurological Medical History: Reports: Hx Migraine. Denies: Hx Cerebrovascular Accident, Hx Seizures Endocrine Medical History: Reports: Hx Hypothyroidism GI Medical History: Reports: Hx Gastroesophageal Reflux Disease, Hx Ulcer Musculoskeltal Medical History: Reports Hx Arthritis - RA AND OSTEO GENERALIZED, Reports Hx Fibromyalgia Psychiatric Medical History: Reports: Hx Anxiety, Hx Depression Past Surgical History: Reports: Hx Appendectomy, Hx Cholecystectomy, Hx Umbilical Hernia. Denies: Hx Pacemaker - Immunizations Hx Diphtheria, Pertussis, Tetanus Vaccination: Yes History of Influenza Vaccine for 06/2017 - 11/2017 Season: Refused Physical Exam - Vital signs Vitals: Temp Pulse Resp BP Pulse Ox 98.2 F 70 17 101/51 L 99 01/24/19 16:25 01/24/19 16:25 01/24/19 16:25 01/24/19 16:25 01/24/19 16:25 Course - Vital Signs Vital signs: Temp Pulse Resp BP Pulse Ox 98.2 F 70 17 101/51 L 99 01/24/19 16:25 01/24/19 16:25 01/24/19 16:25 01/24/19 16:25 01/24/19 16:25 Doctor's Discharge - Discharge Referrals: ELADIO FAGAN MD [Primary Care Provider] - Follow up as needed
[2019-01-24 18:34] LABS: ABSOLUTE LYMPHOCYTES (AUTO) 1.1 10^3/uL (0.5-4.7); ABSOLUTE MONOCYTES (AUTO) 0.4 10^3/uL (0.1-1.4); ABSOLUTE NEUT (AUTO) 6.4 10^3/uL (1.7-8.2); BASOPHILS % (AUTO) 0.5 % (0-2); EOSINOPHILS % (AUTO) 0.6 % (0-6); HEMATOCRIT 35.8 % (36.0-47.0); HEMOGLOBIN 12.4 g/dL (12.0-15.5); MEAN CORPUSCULAR HEMOGLOBIN 33.7 pg (27.0-33.4); MEAN CORPUSCULAR HGB CONC 34.6 g/dL (32.0-36.0); MEAN CORPUSCULAR VOLUME 97 fl (80-97); MONOCYTES % (AUTO) 5.6 % (3-13); PLATELET COUNT 192 10^3/uL (150-450); RED BLOOD COUNT 3.69 10^6/uL (3.72-5.28); RED CELL DISTRIBUTION WIDTH 14.9 % (11.5-14.0); SEGMENTED NEUTROPHILS % (AUTO) 79.3 % (42-78); TOTAL CELLS COUNTED % (AUTO) 100 %; WHITE BLOOD COUNT 8.1 10^3/uL (4.0-10.5)
[2019-01-24 19:00] LABS: ALANINE AMINOTRANSFERASE 89 U/L (9-52); ALKALINE PHOSPHATASE 118 U/L (38-126); ANION GAP 10 (5-19); ASPARTATE AMINO TRANSFERASE 106 U/L (14-36); BILIRUBIN,DIRECT 0.3 mg/dL (0.0-0.4); BILIRUBIN,TOTAL 0.5 mg/dL (0.2-1.3); BLOOD UREA NITROGEN 27 mg/dL (7-20); CALCIUM 9.6 mg/dL (8.4-10.2); CARBON DIOXIDE 28 mmol/L (22-30); CHLORIDE 100 mmol/L (98-107); GLUCOSE 113 mg/dL (75-110); POTASSIUM 4.3 mmol/L (3.6-5.0); SODIUM 137.6 mmol/L (137-145); TOTAL PROTEIN 6.7 g/dL (6.3-8.2)
--- NOTE | 2019-01-24 22:09 | ER Document Report ---
ED General - General Mode of Arrival: Ambulatory TRAVEL OUTSIDE OF THE [place] IN LAST 30 DAYS: No <JAMIR AUGUST - Last Filed: 01/24/19 22:50> <CLEVELAND ENGLAND - Last Filed: 01/25/19 21:58> - General Chief Complaint: Rash Stated Complaint: RASH Time Seen by Provider: 01/24/19 16:33 Primary Care Provider: ELADIO FAGAN MD [ACTIVE STAFF] - Follow up as needed Notes: 48-year-old female with hypertension, hypothyroidism, RA, RLS, migraine headaches, and HSV presents to ED for rash that started on the right leg on Wednesday. It has spread to all over her body. She has small diffuse rash to abdomen chest back arms and legs but a very concentrated rash to the right lower extremity. There is a blanchable erythematous base that looks petechial with a couple small areas that appear vesicular and involuted. It is acutely tender to palpation and there is some associated edema compared to the left leg. She also complains of body aches and sore throat. She states she had a couple falls over the last month but nothing acute at this time. She denies vision changes, neck stiffness, shortness of breath or chest pain, nausea, vomiting, diarrhea, abdominal pain, numbness or paresthesias in any of her extremities. She is seen by [facility] for her primary. (JAMIR AUGUST) - Related Data Allergies/Adverse Reactions: celecoxib [From Celebrex] Allergy (Severe, Verified 01/24/19 23:06) Anaphylaxis cyclobenzaprine HCl [From Flexeril] Allergy (Intermediate, Verified 01/24/19 23:06) Hives morphine Allergy (Intermediate, Verified 01/24/19 23:06) Hives oxycodone [Oxycodone] Allergy (Mild, Verified 01/24/19 23:06) nausea and vomiting adalimumab [From Humira] Allergy (Verified 01/24/19 23:06) Blisters etanercept [From Enbrel] Allergy (Verified 01/24/19 23:06) Hives tocilizumab [From Actemra] Allergy (Verified 01/24/19 23:07) Past Medical History - General Information source: Patient - Social History Smoking Status: Never Smoker Chew tobacco use (# tins/day): No Frequency of alcohol use: None Drug Abuse: None Family History: Reviewed & Not Pertinent Patient has suicidal ideation: No Patient has homicidal ideation: No - Past Medical History Cardiac Medical History: Reports: Hx Hypertension - ON MEDS, Hx Heart Murmur - slight Denies: Hx Coronary Artery Disease, Hx Heart Attack Pulmonary Medical History: Denies: Hx Asthma, Hx Bronchitis, Hx COPD, Hx Pneumonia, Hx Tuberculosis Neurological Medical History: Reports: Hx Migraine. Denies: Hx Cerebrovascular Accident, Hx Seizures Endocrine Medical History: Reports: Hx Hypothyroidism Renal/ Medical History: Denies: Hx Peritoneal Dialysis GI Medical History: Reports: Hx Gastroesophageal Reflux Disease, Hx Ulcer Musculoskeletal Medical History: Reports Hx Arthritis - RA AND OSTEO GENERALIZED, Reports Hx Fibromyalgia Psychiatric Medical History: Reports: Hx Anxiety, Hx Depression Past Surgical History: Reports: Hx Appendectomy, Hx Cholecystectomy, Hx Umbilical Hernia. Denies: Hx Pacemaker - Immunizations Hx Diphtheria, Pertussis, Tetanus Vaccination: Yes <JAMIR AUGUST - Last Filed: 01/24/19 22:50> Review of Systems - Review of Systems Constitutional: See HPI EENT: See HPI Cardiovascular: See HPI Respiratory: See HPI Gastrointestinal: See HPI Genitourinary: No symptoms reported Female Genitourinary: No symptoms reported Musculoskeletal: See HPI Skin: No symptoms reported Hematologic/Lymphatic: No symptoms reported Neurological/Psychological: See HPI <JAMIR AUGUST - Last Filed: 01/24/19 22:50> Physical Exam <JAMIR AUGUST - Last Filed: 01/24/19 22:50> - Vital signs Vitals: Temp Pulse Resp BP Pulse Ox 98.2 F 70 17 101/51 L 99 01/24/19 16:25 01/24/19 16:25 01/24/19 16:25 01/24/19 16:25 01/24/19 16:25 - Notes Notes: PHYSICAL EXAMINATION: Reviewed vital signs and charting by RN GENERAL: Alert, interacts well. No acute distress. HEAD: Normocephalic, atraumatic. EYES: Pupils equal and round. Extraocular movements intact. ENT: Oral mucosa moist, tongue midline. NECK: Full range of motion. Supple. Trachea midline. LUNGS: Clear to auscultation bilaterally, no wheezes, rales, or rhonchi. No respiratory distress. HEART: Regular rate and rhythm. No murmur ABDOMEN: soft, non-tender. Non-distended. Bowel sounds present. no McBurney's point tenderness, no Lynn sign. EXTREMITIES: Moves all 4 extremities spontaneously. No edema, No cyanosis. Normal distal neurovascular exam BACK: No CVAT NEUROLOGIC: Oriented and appropriate. Normal speech. PSYCH: Normal affect, normal mood. SKIN: Right distal lower extremity with significant maculopapular, vesicular rash with blanchable erythematous base, associated edema and acutely tender to palpation. Very diffuse maculopapular rash scattered across the rest of her body (JAMIR AUGUST) Course - Laboratory Result Diagrams: 01/24/19 18:15 01/24/19 18:15 <JAMIR AUGUST - Last Filed: 01/24/19 22:50> - Laboratory Result Diagrams: 01/24/19 18:15 01/24/19 18:15 <C[place] ENGLAND - Last Filed: 01/25/19 21:58> - Re-evaluation Re-evalutation: 01/24/19 22:50 Overall well-appearing. Fairly significant rash on distal right lower extremity with cellulitic component underlying it. Painful to touch. Dr. England look at the rash. Recommendation is double antibiotic coverage for MSSA and MRSA. I gave patient a burst dose of steroids as well. I am giving her Reglan and Benadryl for her headache as she does have an allergy to Celebrex. I gave patient strict return precautions. (JAMIR AUGUST) 01/25/19 21:57 Patient was seen and examined as requested by [facility]. Patient is a 48-year-old female that presented with complaint of rash. PHYSICAL EXAMINATION: GENERAL: Well-appearing, well-nourished and in no acute distress. HEAD: Atraumatic, normocephalic. EYES: Pupils equal round extraocular movements intact, conjunctiva are normal. ENT: Nares patent NECK: Normal range of motion LUNGS: No respiratory distress Musculoskeletal: Normal range of motion NEUROLOGICAL: Normal speech, normal gait. PSYCH: Normal mood, normal affect. SKIN: Right distal lower extremity with significant maculopapular, vesicular rash with blanchable erythematous base, associated edema and acutely tender to palpation. Very diffuse maculopapular rash scattered across the rest of her body (C[place] EN[place]) - Vital Signs Vital signs: Temp Pulse Resp BP Pulse Ox 100.1 F 72 19 114/68 98 01/24/19 23:06 01/24/19 23:06 01/24/19 23:06 01/24/19 23:06 01/24/19 23:06 - Laboratory Laboratory results interpreted by me: 01/24/19 01/24/19 18:15 18:15 RBC 3.69 L Hct 35.8 L MCH 33.7 H RDW 14.9 H Seg Neutrophils % 79.3 H BUN 27 H Creatinine 1.57 H Est GFR ( Amer) 42 L Est GFR (Non-Af Amer) 35 L Glucose 113 H AST 106 H ALT 89 H Discharge <JAMIR AUGUST - Last Filed: 01/24/19 22:50> <[place] - Last Filed: 01/25/19 21:58> - Discharge Clinical Impression: Rash, Headache Condition: Good Disposition: HOME, SELF-CARE Additional Instructions: He was seen in the emergency department this evening for a rash. It is unclear the cause of it but we are going to give antibiotics and steroids to help resolve it. There is a component of cellulitis which explains the redness and the pain when touching it. It will take 48 to 72 hours for antibiotics to use start working so please be patient. If the rash spreads dramatically over the next 2 to 3 days to the level above your knee or over your body please return for reevaluation. If you start to develop hives or difficulty breathing while taking these medications please return as this is an allergic reaction. Since you do not have primary care established here if you have any concerns over the next 4 to 5 days please return for reevaluation if you do not notice any improvements. If you are unable to move your foot at all, it turns purple, goes numb, or you have any other concerns please merely return to the emergency department. Prescriptions: RX: Cephalexin Monohydrate [Keflex 500 mg Capsule] 500 mg PO Q6H 7 Days capsule RX: Prednisone [Deltasone 20 mg Tablet] 20 mg PO DAILY #15 tablet Sulfamethoxazole/Trimethoprim [Bactrim Ds Tablet] 1 each PO BID #14 tablet Referrals: ELDAIO FAGAN MD [ACTIVE STAFF] - Follow up as needed
[2019-01-24] MEDS ORDERED: METOCLOPRAMIDE HCL INJ/PF 10 MG/2 ML SDV IM ONE (22:38)
[2019-01-24] MEDS ORDERED: DIPHENHYDRAMINE HCL 25 MG CAPSULE PO ONE (22:38)
[2019-01-24] MEDS ORDERED: KETOROLAC TROMETHAMINE 60 MG/2 ML SDV IM ONE (22:39)
[2019-01-24] MEDS ORDERED: SULFAMETHOXAZOLE/TRIMETHOPRIM 800-160 MG TABLET PO ONE (22:39)
[2019-01-24] MEDS ORDERED: CEPHALEXIN 500 MG CAPSULE PO ONE (22:40)
[2019-01-24] MEDS ORDERED: PREDNISONE 20 MG TABLET PO ONE (22:55)
[2019-01-24 23:07] VITALS: BP 114/68
== END 2019-01-24 23:28 | disposition home or self-care (01) ==
LOC: ER 15:50
DX: R21 Rash and other nonspecific skin eruption (principal); R51 Headache; M79.10 Myalgia, unspecified site; I10 Essential (primary) hypertension; Z90.49 Acquired absence of other specified parts of digestive tract; Z88.6 Allergy status to analgesic agent
CPT/HCPCS: 99283; 96372; 36415; 87070; 87880; 85025; 80053; J2765; J7512

== ENCOUNTER → 2020-08-21 | Outpatient (CLI) | payer MEDICARE, OTHER ==
--- NOTE | 2020-08-22 15:08 | WOMENS IMAGING REPORT ---
EXAM DESCRIPTION: 3D SCREENING MAMMO BILAT IMAGES COMPLETED DATE/TIME: 08/21/2020 2:59 pm REASON FOR STUDY: Z12.31 ENCOUNTER FOR SCREENING MAMMOGRAM FOR MALIGNANT NEOPLASM OF BREAST Z12.31 ENCNTR SCREEN MAMMOGRAM FOR MALIGNANT NEOPLASM OF SCARLET COMPARISON: Multiple since 2013 EXAM PARAMETERS: Views: Standard craniocaudal and mediolateral oblique views of each breast recorded using digital acquisition and breast tomosynthesis. Read with the assistance of CAD. .[facility] - [employer] Version 9.2 LIMITATIONS: None. FINDINGS: No suspicious masses, suspicious calcifications or architectural distortion. No areas of c oncern. IMPRESSION: NEGATIVE MAMMOGRAM. BIRADS 1. BREAST DENSITY: b. There are scattered areas of fibroglandular density. BIRAD: ASSESSMENT: 1 NEGATIVE RECOMMENDATION: ROUTINE SCREENING Please continue yearly bilateral screening mammography/tomosynthesis in August 2021 COMMENT: The patient has been notified of the results by letter per MQSA requirements. Additional no tification policies are in place for contacting patient with suspicious or incomplete findings. Quality ID #[id number]: The [employer] recommends an annual screening mammogram for women aged 40 years or over. This facility utilizes a reminder system to ensure that all patients receive reminder letters, and/or direct phone calls for appointments. This includes reminders for routine scr eening mammograms, diagnostic mammograms, or other Breast Imaging Interventions when appropriate. Th is patient will be placed in the appropriate reminder system. TECHNICAL DOCUMENTATION: FINDING NUMBER: (1) ASSESSMENT: (1) JOB ID: [id number] 2010 [employer]- All Rights Reserved Reading location - IP/workstation name: [email or web address]
== END ==
LOC: WI 14:41
PROVIDERS: ATTEND Internal Medicine
DX: Z12.31 Encounter for screening mammogram for malignant neoplasm of breast (principal)
CPT/HCPCS: 77063; 77067